=== PATIENT | female | born 1965 | race Caucasian/White ===

== ENCOUNTER → 2020-11-07 | Outpatient (CLI) | payer BC ==
--- NOTE | 2020-11-07 13:52 | RAD ---
EXAM: Carotid Doppler sonogram. HISTORY: Carotid stenosis. Endarterectomy. Hypertension. Stroke. TECHNIQUE: Jimenes scale and color Doppler sonographic evaluation of the neck with spectral waveform charlene lysis was performed and static images are submitted for review. FINDINGS: The peak systolic velocity within the right common carotid artery is 122 cm/sec. The peak s ystolic velocity within the right internal carotid artery is 197 cm/sec and the end diastolic velocit y within the right internal carotid artery is 58 cm/sec. The right ICA/CCA ratio is 1.6. The left carotid arteries are not well seen due to scarring from prior antrectomy surgery. The peak s ystolic velocity within the left common carotid artery is 142 cm/sec. The peak systolic velocity with in the left internal carotid artery is 106 cm/sec and the end diastolic velocity within the left inte rnal carotid artery is 33 cm/sec. The left ICA/CCA ratio is 0.74. There is normal antegrade flow within both vertebral arteries. There is an elevated peak systolic rajwinder ocity within the right external carotid artery. IMPRESSION: 1. Doppler findings suggesting 50-69 percent stenosis involving the right ICA. 2. Doppler findings suggesting less than 50 percent stenosis involving the left ICA. The left carotid arteries are not well seen due to endarterectomy soft tissue scarring 3. Elevated peak systolic velocity within the right external carotid artery, suggesting hemodynamical ly significant stenosis. 4. Note is made that reported suspected occlusion of the proximal left vertebral artery as stenosis i nvolving the left subclavian artery on the prior study performed 10/05/2020 is not seen on this exam. PQRS Compliance Statement - Stenosis calculations for CT, MR and conventional angiography are based u otto measurement of the distal ICA diameter in accordance with the NASCET methodology. Stenosis calcu lations for carotid ultrasound studies are derived from validated velocity criteria which are known t o correlate with the NASCET methodology. <50 <125 <50 50-69 125-230 >50 >70 but < near occlusion >230 >50 Near occlusion High, low, or undetectable Visible Total occlusion Undetectable Visible, no detectable lumen *Plaque estimate (diameter reduction) with jimenes-scale and color Doppler US Degree of Stenosis (%) ICA/CCA PSV Ratio ICA EDV (cm/sec) Normal <2.0 <40 <50 <2.0 <40 50-69 2.0-4.0 40-100 >70 but < near occlusion >4.0 >100 Near occlusion Variable Variable Total occlusion Not applicable Not applicable Electronically signed by: Ting Sutton MD (11/07/2020 1:49 PM) [id number]
== END ==
LOC: US 08:35
PROVIDERS: ATTEND Registered Nurse Medical-Surgical
DX: I65.23 Occlusion and stenosis of bilateral carotid arteries (principal)
CPT/HCPCS: 93880

== ENCOUNTER 2020-11-21 21:10 | Emergency (ER) | payer BC ==
[~2020-11-21] VITALS: Ht 165.1 cm; Wt 100.0 kg
[2020-11-21 21:30] VITALS: BP 164/74
[2020-11-21] MEDS ORDERED: ONDANSETRON PF 4 MG/2 ML VIAL. IVP ONE (21:45)
[2020-11-21] MEDS ORDERED: MORPHINE SULFATE 2 MG/ML DISP.SYRIN. IV ONE (21:45)
--- NOTE | 2020-11-21 21:47 | PHYS DOC ---
General Adult EDM: Chief Complaint: LOWER EXTREMITY SWELLING HPI: HPI: 55-year-old female presents with bilateral lower extremity swelling. She has had this swelling for about 4 days. She is also been feeling a little bit more short of breath. Patient has a history of strokes as well as heart attacks. With the lower leg swelling she is concerned about potential for blood clot. No history of DVT. She is on aspirin daily. She is on Lasix for lower extremity edema. She has been taking her medications as prescribed. She stopped smoking but was a smoker for 30 years. Patient denies fever or chills. She has no other complaints this time. Review of Systems: Review of Systems: Constitutional: Denies fever or chills Eyes: Denies change in visual acuity HENT: Denies nasal congestion or sore throat Respiratory: shortness of breath Cardiovascular: Denies chest pain or edema GI: Denies abdominal pain, nausea, vomiting, bloody stools or diarrhea : Denies dysuria Musculoskeletal: Bilateral lower extremity swelling Integument: Denies rash Neurologic: Denies headache, focal weakness or sensory changes Endocrine: Denies polyuria or polydipsia Lymphatic: Denies swollen glands Psychiatric: Denies depression or anxiety Physical Exam: PE: Constitutional: Well developed, well nourished, morbidly obese, no acute distress, non-toxic appearance. [] HENT: Normocephalic, atraumatic, bilateral external ears normal, oropharynx moist, no oral exudates, nose normal. [] Eyes: PERRLA, EOMI, conjunctiva normal, no discharge. [] Neck: Normal range of motion, no tenderness, supple, no stridor. [] Cardiovascular: Heart rate regular rhythm, no murmur [] Lungs & Thorax: Bilateral breath sounds clear to auscultation [] Abdomen: Bowel sounds normal, soft, no tenderness, no masses, no pulsatile masses. [] Skin: Warm, dry, no erythema, no rash. [] Back: No tenderness, no CVA tenderness. [] Extremities: No tenderness, no cyanosis, no clubbing, ROM intact, 2+ pitting edema bilaterally to above the knees. Similar circumference of both lower legs. [] Neurologic: Alert and oriented X 3, normal motor function, normal sensory function, no focal deficits noted. [] Psychologic: Affect normal, judgement normal, mood normal. [] EKG: EKG: [] Radiology/Procedures: Radiology/Procedures: [] Impressions: AP chest x-ray HISTORY: Shortness of breath. FINDINGS: Moderate enlarged cardiac silhouette similar to the prior study presumably due to cardiomegaly. The sella silhouette is normal. No pneumothorax. No pleural effusions. No pulmonary opacities. Bones are unremarkable. IMPRESSION: No acute process. Cardiomegaly is stable. Electronically signed by: Brandin Montague MD (11/21/2020 10:27 PM) [facility] [place] DICTATED AND SIGNED BY: BRANDIN MONTAGUE MD DATE: 11/21/202224 CC: MYLA WILSON DO; KRYSTINA CASIANO MD ~MTH0 0 Heart Score: C/O Chest Pain: No Risk Factors: Risk Factors: DM, Current or recent (<one month) smoker, HTN, HLP, family histo ry of CAD, obesity. Risk Scores: Score 0 - 3: 2.5% MACE over next 6 weeks - Discharge Home Score 4 - 6: 20.3% MACE over next 6 weeks - Admit for Clinical Observation Score 7 - 10: 72.7% MACE over next 6 weeks - Early Invasive Strategies Course & Med Decision Making: Course & Med Decision Making Pertinent Labs and Imaging studies reviewed. (See chart for details) EKG is unremarkable. Chest x-ray shows stable cardiomegaly. The patient's labs are unremarkable except for some mild anemia. This is likely just excessive swelling due to diet and her existing peripheral edema. I will give her an additional dose of Lasix in the ER. DVT is highly unlikely as it is bilateral and symmetrical. She can follow-up with her primary care physician tomorrow. She is stable for discharge at this time. [] Dragon Disclaimer: Dragon Disclaimer: This electronic medical record was generated, in whole or in part, using a voice recognition dictation system. Departure Departure: Impression: Primary Impression: Bilateral lower extremity edema Disposition: HOME / SELF CARE / HOMELESS Condition: STABLE Referrals: KRYSTINA CASIANO MD (PCP) Patient Instructions: Edema, [id number] MYLA IWLSON DO Nov 21, 2020 21:47
--- NOTE | 2020-11-21 22:30 | RAD ---
AP chest x-ray HISTORY: Shortness of breath. FINDINGS: Moderate enlarged cardiac silhouette similar to the prior study presumably due to cardiomeg carmelina. The sella silhouette is normal. No pneumothorax. No pleural effusions. No pulmonary opacities. B ones are unremarkable. IMPRESSION: No acute process. Cardiomegaly is stable. Electronically signed by: Brandin Montague MD (11/21/2020 10:27 PM) [facility]
[2020-11-21 22:33] LABS: BASO # 0.1 x10^3/uL (0.0-0.2); BASO % 1 % (0-3); EOS # 0.2 x10^3/uL (0.0-0.7); EOS % 3 % (0-3); HEMATOCRIT 32.7 % (36.0-47.0); HEMOGLOBIN 10.4 g/dL (12.0-15.5); LYMPH # 3.2 x10^3/uL (1.0-4.8); LYMPH % 37 % (24-48); MEAN CORPUSCULAR HEMOGLOBIN 27 pg (25-35); MEAN CORPUSCULAR HGB CONC 32 g/dL (31-37); MEAN CORPUSCULAR VOLUME 85 fL (79-100); MONO # 0.8 x10^3/uL (0.0-1.1); MONO % 10 % (0-9); NEUT # 4.3 x10^3uL (1.8-7.7); NEUT % 50 % (31-73); PLATELET COUNT 355 x10^3/uL (140-400); RED BLOOD COUNT 3.85 x10^6/uL (3.50-5.40); RED CELL DISTRIBUTION WIDTH 18.2 % (11.5-14.5); WHITE BLOOD COUNT 8.6 x10^3/uL (4.0-11.0)
[2020-11-21 22:52] LABS: CALCIUM 8.7 mg/dL (8.5-10.1); CREATININE 0.9 mg/dL (0.6-1.0); GFR 65.2; POTASSIUM 3.8 mmol/L (3.5-5.1)
[2020-11-21 22:58] LABS: ALBUMIN 3.6 g/dL (3.4-5.0); TOTAL BILIRUBIN 0.2 mg/dL (0.2-1.0); TOTAL PROTEIN 7.1 g/dL (6.4-8.2)
[2020-11-22] MEDS ORDERED: FUROSEMIDE 40 MG/4 ML VIAL IVP ONE
[2020-11-22] MEDS ORDERED: HYDROcodone/APAP 7.5/325MG 1 TAB TABLET PO ONE
--- NOTE | 2020-11-22 01:53 | EKG ---
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
== END 2020-11-21 23:59 | disposition home or self-care (01) ==
LOC: ER 21:10
DX: R60.0 Localized edema (principal); R06.02 Shortness of breath; Z79.82 Long term (current) use of aspirin; Z86.73 Personal history of transient ischemic attack (TIA), and cerebral infarction without residual deficits; Z87.891 Personal history of nicotine dependence
CPT/HCPCS: 36415; 71045; 80053; 83880; 84484; 85025; 93005; 96374; 96375; 99285; J1940; J2270; J2405